=== PATIENT | female | born 1955 | race American Indian/Alaskan Native ===

== ENCOUNTER 2021-08-31 16:31 | Emergency (ER) | payer MEDICARE ==
[2021-08-31 16:39] VITALS: BP 122/61
--- NOTE | 2021-08-31 18:19 | Emergency Department Report ---
ED General Adult HPI - General Chief complaint: Weakness Stated complaint: GEN WEAKNESS PUI?: Yes Time Seen by Provider: 08/31/21 18:08 Source: patient, EMS Mode of arrival: Ambulatory Limitations: No Limitations - History of Present Illness Initial comments: Chief complaint: "I am weak." HPI: This is a 66-year-old female with history of COVID-19, community-acquired pneumonia, COPD, diabetes mellitus who presents with generalized weakness. She has fatigue, malaise, body aches. She has productive cough. She was evaluated at outside hospital. She left before proper disposition. She stated that the outside hospital served her cold food. -: Gradual, days(s) (Several days) Consistency: constant Improves with: none Worsens with: none Associated Symptoms: cough, malaise, shortness of breath Treatments Prior to Arrival: other (Evaluation at outside hospital. EMS transport to our hospital) - Related Data Previous Rx's Medication Instructions Recorded Last Taken Type Albuterol Mdi (or & Nicu Only) 2 puff IH QID PRN #8.5 gram 08/31/21 Unknown Rx [ProAir HFA Inhaler] Doxycycline Hyclate 100 mg PO BID 7 Days #14 cap 08/31/21 Unknown Rx Prednisone [predniSONE 10 mg 10 mg PO .TAPER #1 1000units 08/31/21 Unknown Rx (6-Day Pack, 21 Tabs)] Allergies Allergy/AdvReac Type Severity Reaction Status Date / Time No Known Allergies Allergy Verified 08/31/21 16:34 ED Review of Systems ROS: Stated complaint: GEN WEAKNESS Other details as noted in HPI Comment: All other systems reviewed and negative Constitutional: chills, fever, malaise Respiratory: cough, shortness of breath Cardiovascular: denies: chest pain Gastrointestinal: denies: abdominal pain, nausea, vomiting ED Past Medical Hx - Past Medical History Previous Medical History?: Yes Hx Diabetes: Yes - Surgical History Past Surgical History?: No - Social History Smoking Status: Current Every Day Smoker Substance Use Type: None - Medications Home Medications: Home Medications Medication Instructions Recorded Confirmed Last Taken Type Albuterol Mdi (or & Nicu Only) 2 puff IH QID PRN #8.5 gram 08/31/21 Unknown Rx [ProAir HFA Inhaler] Doxycycline Hyclate 100 mg PO BID 7 Days #14 cap 01/26/22 Unknown Rx Prednisone [predniSONE 10 mg 10 mg PO .TAPER #1 1000units 08/31/21 Unknown Rx (6-Day Pack, 21 Tabs)] ED Physical Exam - General Limitations: No Limitations General appearance: alert, in no apparent distress, other (Well-appearing, no acute distress) - Head Head exam: Present: atraumatic, normocephalic - Eye Eye exam: Present: normal appearance - ENT ENT exam: Present: mucous membranes moist - Neck Neck exam: Present: normal inspection, full ROM - Respiratory Respiratory exam: Present: normal lung sounds bilaterally. Absent: respiratory distress, wheezes, rales, rhonchi - Cardiovascular Cardiovascular Exam: Present: regular rate, normal rhythm, normal heart sounds. Absent: systolic murmur, diastolic murmur, rubs, gallop - GI/Abdominal GI/Abdominal exam: Present: soft, normal bowel sounds. Absent: distended, tenderness, guarding, rebound - Extremities Exam Extremities exam: Present: normal inspection - Neurological Exam Neurological exam: Present: alert, oriented X3 - Psychiatric Psychiatric exam: Present: normal affect, normal mood - Skin Skin exam: Present: warm, dry, intact, normal color. Absent: rash ED Course Vital Signs 08/31/21 16:34 Temperature 98.1 F Pulse Rate 80 Respiratory 16 Rate Blood Pressure 122/61 [Left] O2 Sat by Pulse 97 Oximetry ED Medical Decision Making - Medical Decision Making Patient appears well with normal vital signs. Oxygen saturation 97% on room air. I prescribed prednisone taper, albuterol MDI, doxycycline. Recently diagnosed with COPD exacerbation, COVID-19 pneumonia at outside hospital. Critical care attestation.: If time is entered above; I have spent that time in minutes in the direct care of this critically ill patient, excluding procedure time. ED Disposition Clinical Impression: COPD exacerbation, Pneumonia due to COVID-19 virus Disposition: HOME / SELF CARE / HOMELESS Is pt being admited?: No Does the pt Need Aspirin: No Condition: Stable Instructions: Chronic Obstructive Pulmonary Disease (ED), Bacterial Pneumonia (ED), Chronic Obstructive Pulmonary Disease, [id number], COVID-19 Frequently Asked Questions Prescriptions: Doxycycline Hyclate 100 mg PO BID 7 Days #14 cap Prednisone [predniSONE 10 mg (6-Day Pack, 21 Tabs)] 10 mg PO .TAPER #1 1000units Albuterol Mdi (or & Nicu Only) [ProAir HFA Inhaler] 2 puff IH QID PRN #8.5 gram PRN Reason: Shortness Of Breath Referrals: PRIMARY CARE, [Referring] - 3-5 Days
== END 2021-08-31 18:50 | disposition home or self-care (01) ==
LOC: ED 16:31
DX: U07.1 COVID-19 (principal); J44.1 Chronic obstructive pulmonary disease with (acute) exacerbation; J12.82 Pneumonia due to coronavirus disease 2019; E11.9 Type 2 diabetes mellitus without complications; F17.200 Nicotine dependence, unspecified, uncomplicated; Z79.899 Other long term (current) drug therapy
CPT/HCPCS: 99282